=== PATIENT | female | born 1935 | race Caucasian/White ===

== ENCOUNTER 2017-05-14 09:51 | Emergency (ER) | payer MEDICARE, MEDICAID ==
[~2017-05-14] VITALS: Ht 157.5 cm; Wt 94.5 kg
[2017-05-14] MEDS ORDERED: CHL25 PO (10:00)
[2017-05-14] MEDS ORDERED: ASPI81 PO (10:00)
[2017-05-14] MEDS ORDERED: VITAD1000 PO (10:00)
[2017-05-14] MEDS ORDERED: FERR-89 PO (10:00)
[2017-05-14] MEDS ORDERED: CALC25 PO (10:00)
[2017-05-14] MEDS ORDERED: LEVO88TA4 PO (10:00)
[2017-05-14] MEDS ORDERED: METO-323 PO (10:00)
[2017-05-14] MEDS ORDERED: AMIO200T44 PO (10:00)
[2017-05-14] MEDS ORDERED: ATOR20TA86 PO (10:00)
[2017-05-14] MEDS ORDERED: CYAN1TAB44 PO (10:00)
[2017-05-14] MEDS ORDERED: ALEN70TA48 PO (10:04)
[2017-05-14] MEDS ORDERED: PALB125C PO ×2 (10:04→12:18)
[2017-05-14] MEDS ORDERED: MORPHINE SULFATE 4 MG/ML SYRINGE IVP ONE (10:45)
[2017-05-14] MEDS ORDERED: MIDAZOLAM HCL 2 MG/2 ML VIAL IVP ONE (11:00)
[2017-05-14] MEDS ORDERED: FentaNYL CITRATE-PF 100 MCG/2 ML VIAL IVP ONE (11:00)
[2017-05-14] MEDS ORDERED: FLUMAZENIL 0.1 MG/ML 5 ML VIAL IVP ONE (11:09)
[2017-05-14] MEDS ORDERED: NALOXONE HCL 1 MG/ML 2 ML SYG ONE (11:09)
[2017-05-14 12:00] VITALS: BP 141/62
== END 2017-05-14 12:38 | disposition home or self-care (01) ==
LOC: EMS 10:00
DX: S43.101A Unspecified dislocation of right acromioclavicular joint, initial encounter (principal); E78.00 Pure hypercholesterolemia, unspecified; I10 Essential (primary) hypertension; E03.9 Hypothyroidism, unspecified; Z79.82 Long term (current) use of aspirin; X58.XXXA Exposure to other specified factors, initial encounter; Y93.89 Activity, other specified; Y92.89 Other specified places as the place of occurrence of the external cause; Y99.8 Other external cause status
CPT/HCPCS: 23650; 73030; 96374; 96375; 99285; J2250; J2270; J3010; 99152; J2310; J3490